=== PATIENT | female | born 1985 | race Caucasian/White ===

== ENCOUNTER 2016-12-10 16:56 | Emergency (ER) | payer OTHER ==
[~2016-12-10] VITALS: Ht 172.7 cm; Wt 86.2 kg
[~2016-12-10 16:56] MED LIST: ZOFRAN ODT4 MG SL
--- NOTE | 2016-12-10 18:27 | ED GENERAL ADULT ---
History of Present Illness General Chief Complaint: General Adult Stated Complaint: FEVER,COUGH,CONGESTION,N/V Source: patient Exam Limitations: no limitations Vital Signs & Intake/Output Vital Signs & Intake/Output Vital Signs Date Time Temp Pulse Resp B/P Pulse O2 O2 Flow FiO2 Ox Delivery Rate 12/106 88 16 117/82 98 Room Air 12/10 1900 Room Air 12/10 1708 97.5 80 20 128/84 98 Room Air Allergies Coded Allergies: MDX - Acetaminophen (From PERCOCET) (ITCHY RASH 03/02/11) MDX - Bee Venom (Bee Venom) (UNKNOWN 02/17/12) MDX - Oxycodone (From PERCOCET) (ITCHY RASH 03/02/11) Reconcile Medications Mometasone Furoate (Nasonex) 50 MCG SPRAY.PUMP 2 SPRAY NASB DAILY congestion Naproxen (Naprosyn) 500 MG TABLET 1 TAB PO BID PRN pain Ondansetron (Zofran Odt) 4 MG TAB.RAPDIS 4 MG SL TID PRN NAUSEA Ondansetron (Zofran Odt) 4 MG TAB.RAPDIS 1 TAB SL TID PRN nausea Triage Note: PT TO ED C/O VOMITING SINCE YESTERDAY. C/O CHEST CONGESTION "HOT AND COLD" SINCE YESTERDAY AFTERNOON. AFEBRILE IN TRIAGE. DENIES S/S. Triage Nurses Notes Reviewed? yes Onset: Gradual Duration: day(s): (1) Timing: remote history Injury Environment: home Severity: moderate Severity Numbers: 6 No Modifying Factors: none : No Patient currently breastfeeds: No HPI: Patient is a 31-year-old female presenting to the emergency Department chief complaint of generalized abdominal discomfort, nausea and vomiting, body aches, tactile fevers and chills with intermittent dizziness times one and half days. She reports that the nausea and vomiting stopped today. She reports she was recently exposed to someone who is sick with similar symptoms. Denies any chest pain palpitations or shortness of breath. Positive for respiratory congestion. (KISHORE SANFORD,HALINA) Past History Travel History Traveled to [place] past 21 day No Medical History Any Pertinent Medical History? see below for history Tetanus Vaccine: 02/20/12 Surgical History Surgical History: non-contributory Psychosocial History What is your primary language Dominican Tobacco Use: Current Daily Use Daily Tobacco Use Amount/Type: => 5 Cigarettes daily ETOH Use: denies use Illicit Drug Use: denies illicit drug use Family History Hx Contributory? No (HALINA DECKER) Review of Systems Review of Systems Constitutional: Reports: fever, malaise, weakness. Comments Review of systems: See HPI, All other systems negative. Constitutional, no weight loss HEENT: No visual changes no sore throat Cardiovascular: No chest pain ,palpitation , orthopnea or ankle swelling Skin, no jaundice no rashes Respiratory: No dyspnea cough sputum or hemoptysis GI: No nausea no vomiting : No dysuria No hematuria Muscle skeletal: no back pain, no neck pain, Neurologic: No numbness no confusion Psych: No stress anxiety or depression,. Heme/endocrine: No bruising no bleeding no polyuria or polydipsia Immunology: No splenectomy or history of AIDS (HALINA DECKER) Physical Exam Physical Exam General Appearance: well developed/nourished, no apparent distress, alert, awake , comfortable Comments: Well-developed well-nourished person in no acute distress HEENT: extraocular motion intact, no nystagmus. Pupils equally round and reactive to light and accommodation. Nose is atraumatic. External auditory canal and Tympanic membranes clear. Pharynx is mildly erythematous, clear nasal discharge bilaterally. No swelling or edema. Neck: Supple, no lymphadenopathy, normal range of motion without pain or tenderness Back: Nontender, no CVA tenderness. Cardiovascular: Regular rate and rhythms no murmurs rubs or gallops, normal JVP Respiratory: Chest nontender. No respiratory distress.breath sounds clear to auscultation bilaterally Abdomen: Soft, nontender nondistended, no appreciable organomegaly. Normal bowel sounds. No ascites, no rebound or guarding. Extremity: No edema Neuro: Alert oriented x3 Skin: No appreciable rash on exposed skin, skin is warm and dry. Psych: Mood and affect is normal, memory and judgment is normal. Core Measures ACS in differential dx? No CVA/TIA Diagnosis: No Severe Sepsis Present: No Septic Shock Present: No (HALINA DECKER) Progress Differential Diagnoses I considered the following diagnoses in my evaluation of the patient: Viral syndrome, upper respiratory infection, influenza, dehydration, electrolyte abnormality, gastroenteritis Plan of Care: Orders Procedure Date/time Status RAPID VIRAL INFLUENZA A 12/10 1825 Complete LIPASE 12/10 1825 Complete COMPREHENSIVE METABOLIC PANEL 12/10 1825 Complete CBC WITHOUT DIFFERENTIAL 12/10 1825 Complete AMYLASE 12/10 1825 Complete Laboratory Tests 12/10/161838: Anion Gap 12, Estimated GFR > 60, BUN/Creatinine Ratio 18.3, Glucose 87, Calcium 9.9, Total Bilirubin 0.7, AST 13 L, ALT 29, Alkaline Phosphatase 68, Total Protein 7.1, Albumin 4.4, Globulin 2.7, Albumin/Globulin Ratio 1.6, Amylase 34, Lipase 77, CBC w Diff NO MAN DIFF REQ, RBC 4.79, MCV 90.5, MCH 30.9, RDW 12.4, MPV 8.6, Gran % 63.9, Lymphocytes % 27.6, Monocytes % 6.7, Eosinophils % 1.4, Basophils % 0.4, Absolute Granulocytes 6.3, Absolute Lymphocytes 2.7, Absolute Monocytes 0.7 H, Absolute Eosinophils 0.1, Absolute Basophils 0, PUBS MCHC 34.1 12/10/161825: Urine Color Cancelled, Urine Clarity Cancelled, Urine pH Cancelled, Ur Specific [place] Cancelled, Urine Protein Cancelled, Urine Ketones Cancelled, Urine Nitrite Cancelled, Urine Bilirubin Cancelled, Urine Urobilinogen Cancelled, Ur Leukocyte Esterase Cancelled, Ur Microscopic Cancelled, Urine Hemoglobin Cancelled, Urine Glucose Cancelled, Urine Test Cancelled Initial ED EKG: none Comments: Patient feeling much better after IV hydration. She will be treated symptomatically. 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 Patient nontoxic. (KISHORE SANFORD,HALINA) Departure Departure Time of Disposition: 1922 Disposition: HOME OR SELF CARE Condition: Stable Clinical Impression Primary Impression: Nausea and vomiting Qualifiers: Vomiting type: unspecified Vomiting Intractability: non-intractable Qualified Code: R11.2 - Nausea with vomiting, unspecified Referrals: PATIENT HAS NO PRIMARY CARE DR (PCP/Family) Additional Instructions: Follow-up with your primary care physician call to make an appointment. Take Zofran as prescribed nausea. Increase fluids. Take naproxen as prescribed for body aches and pains. uses Nasonex to help with congestion. Departure Forms: Customer Survey General Discharge Information Prescriptions: Current Visit Scripts Mometasone Furoate (Nasonex) 2 SPRAY NASB DAILY #1 INHAL Ondansetron (Zofran Odt) 1 TAB SL TID PRN nausea #10 TAB Naproxen (Naprosyn) 1 TAB PO BID PRN pain #20 TAB (HALINA DECKER) PA/[employer] Co-Sign Statement Statement: ED Attending supervision documentation- [] I saw and evaluated the patient. I have also reviewed all the pertinent lab results and diagnostic results. I agree with the findings and the plan of care as documented in the PA's/[employer]'s documentation. [X] I have reviewed the ED Record and agree with the PA's/[employer]'s documentation. [] Additions or exceptions (if any) to the PAs/[employer]'s note and plan are summarized below: [] (BETO PENALOZA,RONNY Dang) Critical Care Note Critical Care Note Critical Care Time: non-applicable (HALINA DECKER)
[2016-12-10 19:06] LABS: ABSOLUTE BASOPHIL COUNT 0 /CUMM (0.0-0.2); ABSOLUTE EOSINOPHIL COUNT 0.1 /CUMM (0.0-0.7); ABSOLUTE GRANULOCYTE CT 6.3 /CUMM (1.4-6.5); ABSOLUTE LYMPH COUNT 2.7 /CUMM (1.2-3.4); ABSOLUTE MONOCYTE COUNT 0.7 /CUMM (0.10-0.60); BASOPHIL % 0.4 % (0.0-2.0); EOSINOPHIL % 1.4 % (0-5); GRANULOCYTE % 63.9 % (42.2-75.2); HEMATOCRIT 43.3 % (37-47); MEAN CORPUSCULAR HGB 30.9 PG (27.0-31.0); MEAN CORPUSCULAR HGB CONC 34.1 G/DL (33.0-37.0); MEAN CORPUSCULAR VOLUME 90.5 FL (81.0-99.0); MEAN PLATELET VOLUME 8.6 FL (7.4-10.4); PLATELET COUNT 206 /CUMM (130-400); RBC DISTRIBUTION WIDTH 12.4 % (11.5-14.5); RED BLOOD CELL CT 4.79 /CUMM (4.20-5.40); WHITE BLOOD CELL COUNT 9.8 /CUMM (4.8-10.8)
[2016-12-10] MEDS ORDERED: NAPROSYN500 M1 PO (19:25)
[2016-12-10] MEDS ORDERED: NASONEX17 GM NASB (19:25)
[2016-12-10] MEDS ORDERED: ZOFRAN ODT4 M1 SL (19:25)
[2016-12-10 19:56] VITALS: BP 117/82
== END 2016-12-10 19:58 ==
LOC: ERH 16:56
PROVIDERS: Physician Assistant
DX: R11.2 Nausea with vomiting, unspecified (principal)
CPT/HCPCS: 81025; 87804; 87804-59; 96361; 96374; J2405